=== PATIENT | male | born 1970 | race Caucasian/White ===

== ENCOUNTER → 2021-03-10 | Outpatient (CLI) | payer OTHER ==
--- NOTE | 2021-03-10 17:29 | Diagnostic Imaging Report ---
EXAMINATION: Magnetic resonance imaging (MRI) of the cervical spine without contrast HISTORY: Left shoulder pain and left arm numbness. TECHNIQUE: Multiplanar multi-weighted MRI of the cervical spine was performed without intravenous contrast using the standard cervical spine protocol. COMPARISON: None available. FINDINGS: There is straightening of the normal cervical lordosis. Vertebral bodies demonstrate normal marrow signal intensity on all sequences. No acute fracture is seen. The craniocervical junction is normal. The visualized portions of the skull base and the posterior fossa are normal. The spinal cord demonstrates normal signal intensity on all sequences. Intervertebral disks have normal height and signal intensity. No soft tissue abnormality is identified. Normal signal voids are present in the vertebral arteries. 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 C2-C3: Normal. C3-C4: Small disc osteophyte complex. Mild central canal stenosis. Mild bilateral neuroforaminal stenosis. C4-C5: Moderate disc osteophyte complex. There is moderate central canal stenosis. Mild right and moderate left neural foraminal stenosis. C5-C6: Small disc osteophyte complex. Mild central canal stenosis. Mild bilateral neuroforaminal stenosis. C6-C7: Moderate disc osteophyte complex. Moderate central canal stenosis. Moderate right and severe left neuroforaminal stenosis. C7-T1: Normal. IMPRESSION: 1. Multilevel degenerative changes of the cervical spine. 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 Additional levels of mild central canal stenosis. 2. Severe neuroforaminal stenosis on the left at C6-C7. Additional levels of [id number] foraminal stenosis. Dictated by: Dictated on workstation # [id number]
== END ==
LOC: RAD 16:15
PROVIDERS: ATTEND Family Medicine
DX: M47.22 Other spondylosis with radiculopathy, cervical region (principal); M48.02 Spinal stenosis, cervical region; M25.78 Osteophyte, vertebrae
CPT/HCPCS: 72141